=== PATIENT | male | born 1980 | race American Indian/Alaskan Native ===

== ENCOUNTER 2018-04-25 11:34 | Emergency (ER) | payer OTHER, MEDICAID ==
[2018-04-25 11:41] VITALS: BMI 22.4
[2018-04-25 11:43] VITALS: RESP 20
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
[2018-04-25 14:00] VITALS: BP 130/65; PULSE 79; TEMP 98.9; O2SAT 100
--- NOTE | 2018-04-25 14:09 | RAD ---
PROCEDURE: Cervical Spine Radiographs. Cervical spine 04/25/2018. Two views of the cervical spine performed. Note that the examination is limited due to lack of odontoid view. . The upper cervical spine is also incompletely seen on the AP view due to overlying mandibular artifact HISTORY: Pain. COMPARISON: None. FINDINGS: BONES: No evidence of acute compression fractures no retropulsed fragments. Chronic appearing anterior stature loss of the C5 and C6 segments felt to be degenerative in origin. Vertebral bodies otherwise exhibit normal stature. Straightening of the normal cervical lordosis which could be cyst due to patient positioning however muscle spasm may contribute. DISC SPACES: Disc space heights relatively maintained. Small to medium-sized anterior marginal osteophyte formation seen at the C5-C6 and to a lesser degree remaining levels. . The C7-T1 disc space is not visualized on this study. There also appears to be some mild uncovertebral facet arthropathy SOFT TISSUES: Normal. No prevertebral soft tissue swelling. OTHER FINDINGS: None. IMPRESSION: Limited study as above. No acute fractures within limitation of the exam. 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 Slight straightening which could be due to patient position no underlying element of muscle spasm may contribute. Prevertebral soft tissues unremarkable.
== END 2018-04-25 13:53 | disposition home or self-care (01) ==
LOC: ED 11:34
DX: M54.6 Pain in thoracic spine (principal); S16.1XXA Strain of muscle, fascia and tendon at neck level, initial encounter; V49.09XA Driver injured in collision with other motor vehicles in nontraffic accident, initial encounter; Y92.524 Gas station as the place of occurrence of the external cause
CPT/HCPCS: 72040; 72070; 96372; 99282; J1885